=== PATIENT | female | born 1975 | race Caucasian/White ===

== ENCOUNTER 2022-01-05 17:04 | Observation (INO) | payer OTHER, SELFPAY ==
--- NOTE | 2021-12-22 11:13 | PCM.HP.BLA ---
History and Physical Date of Admission: 01/05/22 HPI: The patient is a 46 year old female presenting for pre-operative visit. She is scheduled for LAVH, bilateral salpingectomy, for pelvic pain, adenomyosis and on 01/05/22. Procedure discussed along with risks, benefits and complications. Other alternatives discussed for management. Consent form signed? Yes. ? ? PAST MEDICAL HISTORY No past medical history on file. ? ? PAST SURGICAL HISTORY PAST SURGICAL HISTORY Procedure Laterality Date ? ABLATION ? 2008 ? uterine ? ANESTH, SECTION ? 2005 ? ANESTH, SECTION ? 2006 ? ANTERIOR INTERBODY FUSION, CERVICAL ? 2010 ? LUMBAR SPINE FUSION COMBINED ? 1998 ? REMOVAL OF OVARY/TUBE(S) Left 10/2020 ? TONSILLECTOMY HX ? 2011 ? ? ? CURRENT MEDICATIONS Current Outpatient Medications Medication Sig Dispense Refill ? LINZESS 145 mcg capsule Take 145 mcg by mouth once daily. ? ? ? sertraline (ZOLOFT) 50 mg tablet Take 50 mg by mouth once daily. ? ? ? Atomoxetine (STRATTERA) 80 mg capsule Take 80 mg by mouth once daily. ? ? ? multivitamin tablet Take 1 tablet by mouth. ? ? ? sennosides/docusate sodium (SENNA PLUS ORAL) Take by mouth. (Patient not taking: Reported on 12/22/2021 ) ? ? ? atomoxetine (STRATTERA) 25 mg capsule TAKE 1 (ONE) CAPSULE (25 MG TOTAL) BY MOUTH 2 (TWO) TIMES A DAY . (Patient not taking: Reported on 12/22/2021) ? ? ? No current facility-administered medications for this visit. ? ? ALLERGIES: Amoxicillin, Penicillins, Adhesive Tape-Silicones, Ceclor [Cefaclor], Cephalosporins, and Ditropan [Oxybutynin] ? PERSONAL HISTORY: SOCIAL HISTORY Social History ? Tobacco Use ? Smoking status: Never Smoker ? Smokeless tobacco: Never Used Vaping Use ? Vaping Use: Never used Substance Use Topics ? Alcohol use: Not Currently ? Drug use: Not Currently ? FAMILY HISTORY: FAMILY HISTORY FAMILY HISTORY Problem Relation Age of Onset ? other (one kidney) Other ? ? ? REVIEW OF SYMPTOMS: GENERAL: denies fevers or chills ENDOCRINOLOGY: has not been on steroids Cardiology : denies palpitations or chest pain Respiratory: denies SOB or cough Hematology: denies history of prolonged bleeding or easy bruising or VTE Allergy: Denies history of personal or family history of allergy to anesthesia ? PHYSICAL EXAMINATION: ? VITALS: There were no vitals taken for this visit. ? GENERAL: The patient is well nourished, well hydrated in no acute distress. , The patient is oriented to time, place, and person. NECK: Supple. No lynphadenopathy, normal thyroid, no thyromegaly. LUNGS: Clear to auscultation bilaterally. no wheezes, rhonchi or rales HEART: Regular rate and rhythm, Normal heart sounds and No murmurs or gallops ? PELVIC US 09/19/21 Impression Normal appearing anteverted uterus that measures 77 mm x 41 mm x 46 mm. There is a small, intramural fibroid noted that measures 16 mm x 13 mm x 17 mm in size. The central endometrium complex measures 5 mm in combined thickness. No abnormal blood flow to suggest a polyp or focal endometrial pathology is observed within the endometrial complex. The contour of the endometrial cavity was normal on 3-D imaging. Left oophorectomy noted. There is a simple appearing right ovarian cyst measuring 2.7 cm x 1.6 cm x 2.6 cm in size. There is no free fluid visualized in the peritoneal cavity. Recommendations A simple ovarian cyst less than 5cm in a premenopausal woman is likely benign. Follow up imaging as clinically indicated. ? IMPRESSION: post-ablation uterine pain, pelvic pain, adenomyosis, intramural uterine fibroid. ? PLAN: The risks/benefits/alternatives and personal involved for the planned LAVH, bilateral salpingectomy were reviewed with the patient. Her questions were answered to her satisfaction and she desires to proceed. Consent was signed. I reviewed with her postop instructions and expectations. ? ? I have reviewed and updated past medical and surgical history, medications and allergies Assessment & Plan Assessment/Plan (1) Adenomyosis: (2) Intramural uterine fibroid: (3) Pelvic pain: (4) Post endometrial ablation syndrome:
[2021-12-24 10:47] LABS: Hemoglobin 14.1 g/dL (12.0-15.0); Mean Corp Hgb Conc 33.6 g/dL (32-36); Mean Corpuscular Volume 86.2 fL (81-99); Platelet Count 292 K/mm3 (150-450); RBC Distribution Width CV 12.6 % (11.6-14.6); RBC Distribution Width SD 39.7 fl (35.1-43.9); Red Blood Count 4.87 M/mm3 (4.2-5.4); White Blood Count 5.3 K/mm3 (4.4-11.0)
[2021-12-24 11:02] LABS: Magnesium 2.2 mg/dL (1.6-2.6)
[2022-01-05] VITALS (15 sets, daily range): BP systolic 105–142; BP diastolic 56–84; PULSE 68–109; RESP 16–18; TEMP 36.7–37.4; O2SAT 93–99; BMI 34.1
[2022-01-05 07:18] LABS: Internal QC Validated? YES +Cl - CLEAR BKGD; Pregnancy, Urine Negative Negative
[2022-01-05] MEDS: Lactated Ringers 1,000 ML 40 ML IV (07:32)
[2022-01-05] MEDS: Enoxaparin 40 MG/0.4 ML Syringe SC (07:58)
[2022-01-05] MEDS: Celecoxib 200 MG Capsule 400 MG PO (07:58)
[2022-01-05] MEDS: Scopolamine 1mg/72hr Patch 1 PATCH TD (07:58)
[2022-01-05] MEDS: Phenazopyridine 95 MG Tablet 190 MG PO (07:59)
[2022-01-05] MEDS: Gabapentin 600 MG Tablet PO (08:00)
[2022-01-05] MEDS: Acetaminophen 500 MG Tablet 1000 MG PO ×3 (08:00→18:42)
[2022-01-05] MEDS: Clindamycin 900 MG/50 ML BAG 75 MG IV (08:40)
[2022-01-05 08:45] LABS: Bedside Glucose 82 mg/dL (74-106)
--- NOTE | 2022-01-05 08:45 | HYST_PTH ---
PATIENT: MICHAEL SAAB LOC: MS3 U#:[id number] AGE/SX: 46/F ROOM: [facility] [place] RE01/05/[address]: Dr. Diamante Kline MD : [id number] BED: 1 DIS: 01/06/2022 SPEC #: [id number] RECD: 01/05/22 10:58 STATUS: BEENA OBRIEN #: [id number] ALTA: 01/05/22 08:[address]: Diamnate Kline DEPT: SURGICAL PATHOLOGY RECD BY: Angie Lao Tissues: Uterus, NOS Procedures: Surgery Specimen Level V HEADER OPERATION: ERAS, laparoscopic vaginal hysterectomy, right salpingectomy PRE-OP DIAGNOSIS: Adenomyosis, intramural uterine fibroid, pelvic pain, post endometrial ablation syndrome TISSUE SUBMITTED: Uterus and right fallopian tube MICROSCOPIC DIAGNOSIS Uterus and portion of right fallopian tube, vaginal hysterectomy and right salpingectomy: Cervix - no pathologic diagnosis. Endometrium ? proliferative endometrium. - Focal changes consistent with endometrial ablation. Myometrium ? intramural and subserosal leiomyomas. Portion of right fallopian tube - no pathologic diagnosis. SJ:mildred 01/06/2022 MICROSCOPIC DESCRIPTION Slides are reviewed. GROSS DESCRIPTION Received in fixative is one container labeled with the patient's name and designated uterus and right fallopian tube. The specimen consists of a hysterectomy specimen consisting of uterus with cervix and attached portion of right fallopian tube and a small detached piece of tissue. The uterus with cervix weighs 81 gm and measures 8.5 x 6 x 4 cm. The serosal surface is focally ragged. A subserosal nodule is noted. The ectocervical mucosa is unremarkable. The endocervical canal measures 2.5 cm in length and the endocervical mucosa is abdullahi, glistening and unremarkable. The endometrial cavity is obliterated in the proximal portion and in the distal portion it measures 1.5 cm in length and 0.2 cm in width. The endometrium is abdullahi, glistening without any mass lesion and measures 0.1 cm in thickness. Sections of the uterine wall reveal one intramural mass measuring 0.5 cm in greatest dimension and one subserosal nodular mass measuring 2 cm in diameter. Sections of these masses reveal abdullahi whorled cut surfaces without areas of hemorrhage, necrosis or cystic degeneration. The uninvolved uterine wall measures up to 2.5 cm in thickness. Attached portion of the right fallopian tube measures 3 cm in length and 1 cm in diameter. The fimbrial end is not identified. Sections reveal pinpoint. The detached portion of tissue measures 1.5 x 0.5 x 0.5 cm. Bicycle Messenger sections are submitted in nine cassettes as follows: 1??anterior cervix, 2 - posterior cervix, 3 & 4 - anterior uterine wall, 5 & 6 - posterior uterine wall, 7??nodular masses, 8 - right fallopian tube, 9 - detached piece of tissue, entirely submitted. / MAYRA:mildred 01/05/2022 TC:3 CPT: 58753
[2022-01-05] MEDS: dexAMETHasone 10 MG/ML Vial 8 MG IV (08:58)
[2022-01-05] MEDS: Bupivacaine Mpf 0.5% 30 ML VIAL (09:04)
[2022-01-05] MEDS: Lidocaine 1% /Epi 1:100 (20ml) 20 ML Vial (09:58)
[2022-01-05] MEDS: Ondansetron 4 MG/2 ML Vial IV (10:07)
--- NOTE | 2022-01-05 10:23 | OP.PCM_ITS ---
Problems Associated Problem List Diagnoses (1) Adenomyosis: (2) Intramural uterine fibroid: (3) Pelvic pain: (4) Post endometrial ablation syndrome: Report of Operation Date of Procedure: 01/05/22 Pre-Operative Diagnosis: pelvic pain, adenomyosis, post endometrial ablation syndrome, intramural uterine fibroid Post-Operative Diagnosis: same Surgery/Procedure Performed:: LAVH, right salpingectomy Description of Surgical Findings:: Normal right ovary, evidence of right tubal ligation, absent left tube and ovary, small fibroid in anterior uterus, otherwise unremarkable abdomen and pelvis Surgeon: Diamante Kline senior salesforce developer: Florecita Carias Type of Anesthesia: General Anesthesiologist: Vlad Taylor Special Medications: noestephanie Specimen's removed: uterus, cervix, partial right tube Drains: goldberg Estimated Blood Loss (mL): 20 Fluids Replaced: 1600 Description of Procedure: The patient was taken to the operating room where she was prepped and draped in the dorsal lithotomy position. Her arms were tucked to the side and padded and her legs were placed in the yellowfin stirrups. Care was taken to ensure that she was placed in a neurologically safe and neutral position. A weighted speculum was placed in the vagina and the anterior lip of the cervix was grasped with a single-tooth tenaculum. The uterus sounded to 7 centimeters. The ZUMI uterine manipulator was placed and secured but would not remain in place. Therefore the Conn cannula was secured to a single-tooth tenaculum. The Goldberg catheter was placed to straight drain. Attention was turned to the abdominal portion of the case. Before skin incisions were made they were infiltrated with 0.5% Marcaine solution for local anesthetic. A 5 mm intraumbilical incision was made and while tenting the anterior abdominal wall up with towel clamps a 5 mm blade less trocar and sleeve were advanced directly into the peritoneal cavity with the Visiport. Peritoneal placement was confirmed with the laparoscope the pneumoperitoneum was created, and the underlying abdominal contents were intact. The patient was placed in Trendelenburg and the above findings were noted. Right and left lateral 5 mm trochars were placed under direct visualization without difficulty. The antimesenteric portion of the remaining portion of the right tube was cl amped sealed and transected serially on both sides with the LigaSure device. The round ligaments were clamped sealed and transected and a window was made in the peritoneum. The utero-ovarian ligaments were then clamped, sealed and transected with the LigaSure device and the pedicles were hemostatic The bladder flap was dissected down with the LigaSure device and blunt dissection. There were some adhesions of the bladder and these were taken down with blunt and sharp dissection and the uterine arteries were then skeletonized. The uterine arteries were clamped, sealed and transected on both sides with the LigaSure device. At this point the pedicles were all examined and found to be hemostatic. Attention was turned to the vaginal portion of the case. 1% lidocaine with dilute epinephrine solution was used to infiltrate the anterior vaginal epithelium over the cervix. An incision was made from 3 to 9:00 across the anterior vaginal epithelium and the vaginal epithelium was dissected back with blunt sharp dissection. The anterior colpotomy incision was made. The vaginal epithelium on each side of the cervix at 3 and 9:00 was clamped, transected and suture ligated. The next pedicle contained the anterior peritoneum and part of the cardinal ligament. The pedicle was was clamped with a Amanda clamp, transected and suture-ligated. Hemostasis was noted. The uterine fundus was brought through the anterior colpotomy incision. The uterosacral ligaments and vaginal cuff were secured with Amanda clamps. The pedicles were transected. The uterus and cervix were then amputated and removed. The pedicles were secured with an 0 Vicryl suture. At this point, the pedicles were all examined and hemostasis was assured. A [id number]-qo-vagnz was needed in the midline and the vaginal cuff between the uterosacrals to tack the peritoneum down to the posterior vaginal wall. The vaginal cuff was then closed in a horizontal fashion with interrupted 0 Vicryl [id number]-[id number] sutures. Care was taken to secure the vagina to the uterosacral ligaments. The Goldberg catheter was removed and a cystoscopy was performed. The bladder appeared normal and was intact. Both ureteral orifices were noted and both ureteral jets were seen. The cystoscope was removed and the Goldberg catheter was placed back to straight drain. A sponge stick was placed in the vagina to help place traction against the vaginal cuff. The laparoscope was reinserted into the abdomen and the pneumoperitoneum was re- created. The pedicles were reexamined and found to be hemostatic. The vaginal cuff was hemostatic. Tsering was placed over the peritoneal edges and no active bleeding was noted through the Tsering. The right and left lateral ports were taken out and the sites were hemostatic. The pneumoperitoneum was released and even under low pressure there was no bleeding of any of the pedicles are vaginal cuff. The umbilical port was removed. The umbilical skin incisions were closed with Monocryl suture and skin glue by the RADIATOR FITTER. The vaginal instruments were removed by me and a vaginal sweep was completed by me. The surgery was performed by me with assistance other than the portions dictated as above. There were no qualified residents available for this procedure. All sponge lap and needle counts were correct and the patient was transferred to the recovery room in stable condition. Grafts/Implants Used: none Procedure Start Time: 09:04 Procedure Stop Time: 11:28 Complications none Admit VTE Documentation VTE Present on Admission: No VTE Mechan Device Prophylaxis: SCD's VTE Pharm Prophylaxis ordered?: No Reason prophylaxis not ordered:: Procedure Not Indicated
[2022-01-05] MEDS: Lactated Ringers @ 70 MLS/HR 70 ML IV ×2 (10:45→12:40)
[2022-01-05] MEDS: Ketorolac 30 MG/ML Syringe IV ×2 (14:56→21:40)
[2022-01-05] MEDS: Docusate Sodium 100 MG Capsule PO (21:39)
[2022-01-06] MEDS: Acetaminophen 500 MG Tablet 1000 MG PO ×2 (00:15→08:27)
[2022-01-06 02:53] VITALS: BP 134/71; PULSE 100; RESP 16; TEMP 36.6; O2SAT 95
[2022-01-06 04:46] LABS: Hematocrit 37.4 % (37-47); Hemoglobin 12.6 g/dL (12.0-15.0); Mean Corp Hgb Conc 33.7 g/dL (32-36); Mean Corpuscular Hgb 28.9 pg (27.0-32.0); Mean Corpuscular Volume 85.8 fL (81-99); Mean Platelet Vol. 8.8 fl (6.2-12.0); Platelet Count 256 K/mm3 (150-450); RBC Distribution Width CV 12.6 % (11.6-14.6); RBC Distribution Width SD 39.5 fl (35.1-43.9); Red Blood Count 4.36 M/mm3 (4.2-5.4); White Blood Count 11.2 K/mm3 (4.4-11.0)
[2022-01-06 05:45] VITALS: BP 120/62; PULSE 91; RESP 16; TEMP 36.6; O2SAT 95
[2022-01-06] MEDS: Ketorolac 30 MG/ML Syringe IV (05:48)
[2022-01-06 07:14] VITALS: O2SAT 93
[2022-01-06] MEDS: Sertraline 50 MG Tablet PO (08:27)
[2022-01-06] MEDS: Docusate Sodium 100 MG Capsule PO (08:29)
[2022-01-06 08:30] VITALS: BP 127/75; PULSE 87; RESP 16; TEMP 36.4; O2SAT 99
--- NOTE | 2022-01-06 08:52 | PCM.PN.BLA ---
Progress Note Pain well controlled. No significant vaginal bleeding. Denies nausea or vomiting. No flatus. Tolerated regular diet this morning. Manriquez catheter still in. Physical Exam Const Constitutional Narrative: Awake, alert, no acute distress. Interactive and cooperative. GI GI Narrative: Abdomen soft, mildly distended. Incisions are clean dry and intact with skin glue. No significant bleeding on the peripads. Manriquez removed in usual fashion and patient tolerated this well. Extremities without edema. Skin warm, dry and intact Assessment & Plan Assessment/Plan (1) Intramural uterine fibroid: (2) Pelvic pain: (3) Post endometrial ablation syndrome: (4) Adenomyosis: (5) Postoperative pain:
--- NOTE | 2022-01-06 08:55 | DS.PCM_ITS ---
Providers Date of Admission: 01/05/22 Primary Care Physician: VIET CHAUDHARI Reason For Visit: LAP VAG HYSTER, BS Diagnosis Discharge Diagnosis (1) Intramural uterine fibroid: Status: Acute Code(s): D25.1 - Intramural leiomyoma of uterus (2) Pelvic pain: Status: Acute Code(s): R10.2 - Pelvic and perineal pain (3) Post endometrial ablation syndrome: Status: Acute Code(s): N99.85 - Post endometrial ablation syndrome (4) Adenomyosis: Status: Acute Code(s): N80.0 - Endometriosis of uterus (5) Postoperative pain: Status: Acute Code(s): G89.18 - Other acute postprocedural pain Medications at Discharge Home Medications Linzess 290 mcg PO DAILY 12/23/21 atomoxetine [Strattera] 80 mg PO DAILY 12/23/21 sertraline [Zoloft] 50 mg PO DAILY 12/23/21 oxycodone 5 mg PO Q6H PRN PRN 7 Days #8 tablet 01/06/22 Hospital Course Operations - (Laparoscopic-assisted vaginal hysterectomy with partial right salpingectomy) Procedures None Summary of Care Provided Hospital Course: 46-year-old female who had an endometrial ablation in the past and had failed it. Had pelvic pain, an intramural fibroid and adenomyosis. Desired definitive therapy in the form of a hysterectomy. The laparoscopic- assisted vaginal hysterectomy with removal of remaining portion of right fallopian tube was performed on 01/05/2022 without complication. By postoperative day #1 patient was ready for discharge. Weight / BMI Weight Weight: 96 kg Body Mass Index (BMI) 34.1 ABG / Lab / Microbiology Data Result Diagrams: 01/06/22 04:34 Laboratory: Laboratory Results - last 24 hr 01/06/22 04:34: WBC 11.2 H, RBC 4.36, Hgb 12.6, Hct 37.4, MCV 85.8, MCH 28.9, MCHC 33.7, RDW Std Deviation 39.5, RDW Coeff of Noble 12.6, Plt Count 256, MPV 8.8 D/C Instructions Discharge Diet: No restrictions May resume sexual activity in: 6 weeks Call your doctor if your incision/area has: Continuous Slow Oozing, Sudden Increased Bleeding, Foul Smelling Discharge and Swelling at the incision site Call your doctor if you observe: Fever of 101 or Higher and Inability to urinate Please Follow Up With: Diamante Kline MD When: Follow up with our office in 1-2 and 6 weeks or as needed. [phone] Meaningful Use Info Meaningful Use Diagnoses (Choose all that apply): None applicable Discharge Plan Admission Admit Date/Time: 01/05/22 17:04 Primary Reason for Your Visit: Laparoscopic-assisted vaginal hysterectomy Attending Provider: Diamante Kline Discharge Orders/Prescriptions Prescriptions: New oxycodone 5 mg tablet 5 mg PO Q6H PRN PRN (Reason: severe pain) 7 Days Qty: 8 RF: 0 Continued sertraline [Zoloft] 50 mg Tablet 50 mg PO DAILY RF: 0 atomoxetine [Strattera] 80 mg Capsule 80 mg PO DAILY RF: 0 Linzess 290 mcg Capsule 290 mcg PO DAILY RF: 0 Referrals / Follow Up: VIET CHAUDHARI [Other] Disposition Disposition (needs filled in before D/C Order can be placed): Home, Self Care
== END 2022-01-06 10:56 | disposition home or self-care (01) ==
LOC: MS3 01-06 09:00 → SDC 01-09 16:27
PROVIDERS: Anesthesiology; Admitting Provider Obstetrics & Gynecology; Referring Provider Obstetrics & Gynecology; Visit Provider Obstetrics & Gynecology
PROC: 0UT9FZZ Resection of Uterus, Via Natural or Artificial Opening With Percutaneous Endoscopic Assistance (ICD-10-PCS; CPT 58552; principal; 2022-01-05 08:20)
DX: D25.1 Intramural leiomyoma of uterus (principal); N83.291 Other ovarian cyst, right side; N80.0 Endometriosis of uterus; Z79.899 Other long term (current) drug therapy; N99.85 Post endometrial ablation syndrome; D25.2 Subserosal leiomyoma of uterus; F41.9 Anxiety disorder, unspecified; F90.9 Attention-deficit hyperactivity disorder, unspecified type; M43.10 Spondylolisthesis, site unspecified; J45.909 Unspecified asthma, uncomplicated; Z98.1 Arthrodesis status
CPT/HCPCS: 58552; 00944; 36415; 81025; 82962; 83735; 85027; 86850; 86900; 86901; 88307; 96365; 96375; 96376; 99218; 99251; J7120; G0378; G0463; J2405; J3475